=== PATIENT | female | born 2005 | race Caucasian/White ===

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

== ENCOUNTER 2025-02-23 07:40 | Outpatient (CLI) | payer BC, SELFPAY ==
--- OUTSIDE RECORDS SUMMARY | 2025-02-23 07:42 | XMS_ITS | Clinical Summary ---
Author Organization Healthcare Address [address] [id number] Care Team Providers Care Special Education Science Teacher Name Role Phone Rashad Lula Vance FRANKLIN Primary Care Provider [phone] Allergies No known active allergies Medications NON FORMULARY FD michelle per Fuchollis suggestions Active cyproheptadine (Periactin) 4 MG tablet Take 1 tablet (4 mg total) by mouth 2 (two) times a day. 60 tablet 3 12/19/19 22 Active ondansetron ODT (Zofran-ODT) 4 MG disintegrating tablet DISSOLVE ONE TABLET IN MOUTH EVERY 8 HOURS NEEDED FOR NAUSEA AND VOMITING 12/12/19 22 Active Active Problems Problem Noted Date Diagnosed Date Weight loss 12/21/2021 Generalized abdominal pain 12/21/2021 Non-intractable vomiting with nausea 12/21/2021 Heart palpitations 12/21/2021 Chronic nonintractable headache 12/21/2021 Other infants, unspecified (weight)(765. 10) 2005 Overview (12/29/2021): 36 weeks Immunizations Immunization Administration Dates Next Due DTaP / Hib 06/23/2007 DTaP, Unspecified 04/15/2010,12/06/2006,05/31/20 06,03/10/2006 Hep A, ped/adol, 2 dose 04/20/2018 Hep B, adult 06/23/2007,2005,2005 HiB, unspecified 12/06/2006,05/31/2006, 6 IPV 04/15/2010,06/23/2007,05/31/2006 ,03/10/2006 Influenza, Unspecified 06/23/2007 MMR 04/15/2010 MMRV 12/06/2006 Meningococcal MCV4P 04/20/2017 Pneumococcal Conjugate PCV 7 06/23/2007,12/07/19 07,05/31/2006,03/10/2006 Rotavirus Pentavalent 05/31/2006,03/10/2006 Tdap 04/20/2017 Varicella 04/15/2010 Family History Medical History Relation Name Comments Other Brother recent [facility] py Relation Name Status Comments Brother Social History Tobacco Use Types Packs/Day Years Used Date Smoking Tobacco: Never Smokeless Tobacco: Never Alcohol Use Standard Drinks/Week Comments Never 0 (1 standard drink = 0.6 oz pur e alcohol) PHQ-2 Answer Date Recorded Patient Health Questionnaire-2 Score 0 12/29/2021 Comments No Sex and Gender Information Value Date Recorded Sex Assigned at Not on file Legal Sex Female 12:15 PM EST Gender Identity Not on file Sexual Orientation Not on file Last Filed Vital Signs Vital Sign Reading Time Taken Comments Blood Pressure 122/76 09/19/2023 8:33 PM EST Pulse 94 09/19/2023 8:33 PM EST Temperature 36.4 C (97.6 F) 09/19/2023 8:33 PM EST Respiratory Rate 18 09/19/2023 8:33 PM EST Oxygen Saturation 97% 09/19/2023 8:33 PM EST Inhaled Oxygen Concentration - - Weight 64.2 kg (141 lb 8.6 oz) 09/19/2023 8:32 P M EST Height 175.9 cm (5' 9.25 ) 12/29/2021 1:05 PM ED T Body Mass Index - - Plan of Treatment Health Maintenance Due Date Last Done Comments [facility]-HIV Screening 2005 [facility]-Hepatitis C Screening 2005 [facility]-Infant/Child/Adol SDOH Screenings 2005 Fluoride Varnish 07/09/2006 [id number] Vaccine (#1) 2010 [facility]-Hepatitis A Vaccines (2 of 2 - 2-dose series) 10/21/2018 04/20/2018 HPV Vaccines (1 - 3-dose series) 2020 [facility]-Depression Screening 12/29/2022 12/29/2021 [facility]- SDOH Screenings 2023 [facility]-Adult SDOH Screenings 2023 [facility]-Influenza Vaccine (Season Ended) 2025 06/23/2007 [facility]-DTaP,Tdap,and Td Vaccines (7 - Td or Tdap) 04/20/2027 04/20/2017, 04/15/2010, 06/23/2007, Additional history exists [facility]-Zoster Vaccines (1 of 2) 2055 04/15/2010, 12/06/2006 [facility]-Rotavirus Vaccines Aged Out 05/31/2006, 2005 No longer eligible based on patient's age to complete this topic [facility]-HIB Vaccines Completed 06/23/2007, , 05/31/2006, Additional history exists [facility]-Hepatitis B Vaccines Completed 007, 2005, 2005 [facility]-Pneumococcal Vaccine: Pediatrics (0 to 5 Years) and At-Risk Patients (6 to 49 Years) Aged Out 06/23/2007, 12/06/2006, 05/31/2006, Additional history exists No longer eligible based on patient's age to complete this topic [facility]-IPV Vaccines Completed 04/15/2010, 07/2007, 05/31/2006, Additional history exists [facility]-Varicella Vaccines Completed 04/15/2010, 2006 Insurance [facility] TIA KAM, [place] [id number] [facility] Care Teams Special Education Science Teacher Relationship Specialty Start Date End Date Lula Solorzano PA [address] [place] [address] [facility] - General 12/18/21
[2025-02-23 07:59] LABS: Basophils % 0.5 % (0.1-2.0); Eosinophils # 0.2 Kmm3 (0.0-0.4); Eosinophils % 2.7 % (0.1-12.0); Hematocrit 41.4 % (37.0-47.0); Hemoglobin 13.1 g/dL (12.2-16.2); Immature Granulocytes # 0.01 10^3uL; Immature Granulocytes % 0.2 %; Lymphocytes # 2.2 K/mm3 (0.7-4.5); Lymphocytes % 36.8 % (10-50); Mean Corpuscular HGB Conc 31.6 g/dL (31.8-35.4); Mean Corpuscular Hemoglobin 26.7 pg (27.0-31.2); Mean Corpuscular Volume 84.5 fl (81-99); Monocytes # 0.8 K/mm3 (0.1-1.0); Neutrophils # 2.8 K/mm3 (1.8-7.8); Neutrophils % 46.8 % (37.0-80.0); Nucleated Red Blood Cells # 0 10^3/uL; Nucleated Red Blood Cells % 0 %; Platelet Count 236 K/mm3 (142-424); Red Cell Distribution Width 16.4 % (11.5-17.5); Red Cell Distribution Width-SD 50.9 fL
[2025-02-23 08:31] LABS: Iron 75 ug/dL (37-170)
[2025-02-23 08:42] LABS: Total Iron Binding Capacity 361 ug/dL (265-497)
[2025-02-23 09:04] LABS: Ferritin 7.51 ng/ml (6.24-137)
[2025-02-28 16:13] LABS: Saccharomyces cerevisiae, IgA <20.0 Units (0.0-24.9); Saccharomyces cerevisiae, IgG 20.4 Units (0.0-24.9)
== END 2025-02-23 23:59 | disposition home or self-care (01) ==
LOC: LAB 07:41
PROVIDERS: PCP Nurse Practitioner Family; Visit Provider Nurse Practitioner Family
DX: E61.1 Iron deficiency (principal)
CPT/HCPCS: 36415; 82728; 83540; 83550; 85025; 86256; 86671

== ENCOUNTER 2025-03-30 15:14 | Outpatient (CLI) | payer BC, SELFPAY ==
--- OUTSIDE RECORDS SUMMARY | 2025-03-30 15:16 | XMS_ITS | Clinical Summary ---
Author Organization Healthcare Address [address] [id number] Care Team Providers Care Steel Inspector Name Role Phone Rashad Lula Vance FRANKLIN Primary Care Provider [phone] Allergies No known active allergies Medications NON [...] [facility]-Infant/Child/Adol SDOH Screenings 2005 Fluoride Varnish 07/09/2006 [id number] Vaccine (#1) 2010 [facility]-Hepatitis A Vaccines (2 of 2 - 2-dose series) 10/21/2018 04/20/2018 HPV Vaccines (1 - 3-dose series) 2020 [facility]-Depression Screening 12/29/2022 12/29/2021 UKY- SDOH Screenings 2023 [facility]Y-Adult SDOH Screenings 2023 [facility]Y-Influenza Vaccine (#1) 2025 06/23/2007 UKY-DTaP,Tdap,and Td Vaccines (7 - [...] exists [facility]Y-Varicella Vaccines Completed 04/15/2010, 2006 Insurance [facility] TIA KAM, NEAL [phone] [facility] Care Teams Steel Inspector Relationship Specialty Start Date End Date Lula Solorzano PA [address] [place] [address] [facility] - General 12/18/21
--- OUTSIDE RECORDS SUMMARY | 2025-03-30 15:16 | XMS_ITS | Encounter Summary ---
Author Organization [facility] Address [address] [place] [address] Care Team Providers Care Superintendent Stevedoring Name Role Phone Kay Borrero M.D. Primary Care P [facility] Encounter Details Date Type Department Care Team (Late st Contact Info) Description 04/14/2012 Abstract [facility] Division of Cardiology [address] [place] [phone] Claudia Napoles, R.N. Social History Tobacco Use Types Packs/Day Years Used Date Smoking Tobacco: Never Assessed Comments Unknown Sex and Gender Information Value Date Recorded Sex Assigned at Not on file Legal Sex Female 5:36 AM EST Gender Identity Not on file Sexual Orientation Not on file documented as of this encounter Plan of Treatment Not on file documented as of this encounter Visit Diagnoses Not on filedocumented in this encounter Care Teams Superintendent Stevedoring Relationship Specialty Start Date End Date Kay Borrero M.D. [facility] [address] [place] [address] PCP - General EMERGENCY MEDICINE [facility] 05/27/11 documented as of this encounter
--- OUTSIDE RECORDS SUMMARY | 2025-03-30 15:16 | XMS_ITS | Clinical Summary ---
Author Organization [facility] Address [address] [place] [address] Care Team Providers Care Senior Research Associate Name Role Phone Kay Borrero M.D. Primary Care [facility] Source Comments [facility] is fully rolled out with thefollowing exceptions:General Clinical Research [facility] Allergies No known active allergies Medications No known medications Social History Tobacco Use Types Packs/Day Years Used Date Smoking Tobacco: Never Assessed Comments Unknown Sex and Gender Information Value Date Recorded Sex Assigned at Not on file Legal Sex Female 5:36 AM EST Gender Identity Not on file Sexual Orientation Not on file Last Filed Vital Signs Vital Sign Reading Time Taken Comments Blood Pressure 105/63 04/28/2012 10:19 AM EDT Pulse 70 04/28/2012 10:18 AM EDT Temperature 37 C (98.6 F) 04/12/2012 6:47 PM EDT Respiratory Rate 20 04/28/2012 10:18 AM EDT Oxygen Saturation 98% 04/28/2012 10:18 AM EDT Inhaled Oxygen Concentration - - Weight 25.9 kg (57 lb) 04/28/2012 10:18 AM EDT Height 121.5 cm (3' 11.84 ) 04/28/2012 10:18 AM EDT Body Mass Index 17.51 04/28/2012 10:18 AM EDT Body Mass Index Percentile 86.84% 04/28/2012 10: 18 AM EDT Growth Chart: [facility] (Girls, 2- 20 Years) Plan of Treatment Health Maintenance Due Date Last Done Comments MMR IMMUNIZATION (1 of 1 - S tandard series) 2006 DTAP/Tdap/Td IMMUNIZATION (1 - Tdap) 2012 VARICELLA IMMUNIZATION (1 of 2 - 13+ 2-dose series) 2018 HPV IMMUNIZATION (1 - 3-dose series) 2020 MENINGOCOCCAL B VACCINE (1 o f 2 - Standard) 2021 COVID-19 Vaccine (1 - 2023-2 5 season) 2024 HEPATITIS B IMMUNIZATION (1 of 3 - 19+ 3-dose series) 2024 AMB SEASONAL FLU VACCINE (#1) 05/14/2025 HIB IMMUNIZATION Aged Out No longer e ligible based on patient's age to complete this topic IPV IMMUNIZATION Aged Out No longer e ligible based on patient's age to complete this topic MCV4 IMMUNIZATION Aged Out No longer eligible based on patient's age to complete this topic PNEUMOCOCCAL IMMUNIZATION Aged Out No longer eligible based on patient's age to complete this topic Respiratory Syncytial Virus (RSV) <20mo Aged Out No longer eligible b ased on patient's age to complete this topic Insurance [employer] Care Teams Senior Research Associate Relationship Specialty Start Date End Date Kay Borrero M.D. [facility] [address] [place] [address] PCP - General EMERGENCY MEDICINE [facility] 05/27/11
--- NOTE | 2025-03-30 15:30 | US_ITS ---
FINAL REPORT CLINICAL HISTORY: lump of RT axilla FINDINGS: Limited sonographic images of the right axilla were obtained. There is adenopathy in the deep axilla. The largest node is 2.6 x 2.2 x 1.2 cm. A few other smaller lymph nodes are identified. No fluid collection identified. IMPRESSION: Mild right axillary adenopathy. Recommend 2-month ultrasound follow-up. Reviewed, Interpreted and Dictated by Diamond Krishnamurthy MD Transcribed by Katrina Smiley Authenticated and [facility]
== END 2025-03-30 23:59 | disposition home or self-care (01) ==
LOC: RAD 15:15
PROVIDERS: PCP Nurse Practitioner Family; Visit Provider Obstetrics & Gynecology
DX: N63.31 Unspecified lump in axillary tail of the right breast (principal)
CPT/HCPCS: 76642

== ENCOUNTER 2025-04-03 12:02 | Outpatient (CLI) | payer BC, SELFPAY ==
--- OUTSIDE RECORDS SUMMARY | 2025-04-03 12:04 | XMS_ITS | Clinical Summary ---
Author Organization Healthcare Address [address] [id number] Care Team Providers Care Avid Editor Name Role Phone Rashad Lula Vance FRANKLIN Primary Care Provider [phone] Allergies No known active allergies Medications NON [...] [facility]-Infant/Child/Adol SDOH Screenings 2005 Fluoride Varnish 07/09/2006 [id number] Vaccine (#1) 2010 [facility]-Hepatitis A Vaccines (2 [...] exists [facility]Y-Varicella Vaccines Completed 04/15/2010, 2006 Insurance [facility] TIA KAM, NEAL [address] [facility] Care Teams Avid Editor Relationship Specialty Start Date End Date Lula Solorzano PA [address] [place] [address] [facility] - General 12/18/21
--- OUTSIDE RECORDS SUMMARY | 2025-04-03 12:04 | XMS_ITS | Clinical Summary ---
Author Organization [facility] Address [address] [place] [address] Care Team Providers Care Budget Coordinator Name Role Phone Kay Borrero M.D. Primary Care [facility] Source Comments [facility] is fully rolled out with thefollowing exceptions:General Clinical Research [facility] Allergies No known active allergies Medications [...] 04/28/2012 10: 18 AM EDT Growth Chart: [facility] (Girls, 2- 20 Years) Plan of Treatment [...] this topic Insurance [employer]ARA TOWNSEND Care Teams Budget Coordinator Relationship Specialty Start Date End Date Kay Borrero M.D. [facility] [address] [place] [address] PCP - General EMERGENCY MEDICINE [facility] 05/27/11
--- OUTSIDE RECORDS SUMMARY | 2025-04-03 12:04 | XMS_ITS | Encounter Summary ---
Author Organization [facility] Address [address] [place] [address] Care Team Providers Care Program Architect Name Role Phone Kay Borrero M.D. Primary Care [facility] Encounter Details Date Type Department Care Team (Late st Contact Info) Description 04/14/2012 Abstract [facility] Division of Cardiology [address] [place] [phone] Claudia Napoles, R.N. Social History Tobacco [...] on filedocumented in this encounter Care Teams Program Architect Relationship Specialty Start Date End Date Kay Borrero M.D. [facility] [address] [facility] [place] [address] PCP - General EMERGENCY MEDICINE [facility] 05/27/11 documented as of this encounter
[2025-04-03 12:45] LABS: Hematocrit 41.3 % (37.0-47.0); Hemoglobin 13.1 g/dL (12.2-16.2); Immature Granulocytes % 0.2 %; Mean Corpuscular HGB Conc 31.7 g/dL (31.8-35.4); Mean Corpuscular Hemoglobin 27.2 pg (27.0-31.2); Mean Corpuscular Volume 85.9 fl (81-99); Nucleated Red Blood Cells % 0 %; Platelet Count 241 K/mm3 (142-424); Red Blood Count 4.81 M/mm3 (4.20-5.40); Red Cell Distribution Width-SD 42.7 fL; White Blood Count 5.9 K/mm3 (4.5-13.0)
[2025-04-03 13:08] LABS: Iron 76 ug/dL (37-170)
[2025-04-03 13:18] LABS: Total Iron Binding Capacity 345 ug/dL (265-497)
[2025-04-03 13:43] LABS: Ferritin 15.3 ng/ml (6.24-137)
== END 2025-04-03 23:59 | disposition home or self-care (01) ==
LOC: LAB 12:03
PROVIDERS: PCP Nurse Practitioner Family; Visit Provider Nurse Practitioner Family
DX: E61.1 Iron deficiency (principal)
CPT/HCPCS: 36415; 82728; 83540; 83550; 85025

== ENCOUNTER 2025-05-23 14:34 | Outpatient (CLI) | payer BC, SELFPAY ==
--- OUTSIDE RECORDS SUMMARY | 2025-05-23 14:36 | XMS_ITS | Clinical Summary ---
Author Organization Healthcare Address [address] [id number] Care Team Providers Care Distribution Clerk Name Role Phone Rashad Lula Vance FRANKLIN Primary Care Provider [phone] Allergies No known active allergies Medications NON [...] [facility]-HIV Screening 2005 [facility]-Hepatitis C Screening 2005 [facility]-/Child/Adol SDOH Screenings 2005 Fluoride Varnish 07/09/2006 [id number] Vaccine (#1) 2010 [facility]Y-Hepatitis A Vaccines (2 [...] exists [facility]Y-Varicella Vaccines Completed 04/15/2010, 2006 Insurance [facility] TIA KAM, NEAL [address] [facility] Care Teams Distribution Clerk Relationship Specialty Start Date End Date Lula Solorzano PA [address] [place] [address] [facility] - General 12/18/21
--- OUTSIDE RECORDS SUMMARY | 2025-05-23 14:36 | XMS_ITS | Encounter Summary ---
Author Organization [facility] Address [address] [place] [address] Care Team Providers Care Gill Tender Name Role Phone Kay Borrero M.D. Primary Care [facility] Encounter Details Date Type Department Care Team (Late st Contact Info) Description 04/14/2012 Abstract [facility] Division of Cardiology [address] [place] [phone] Claudia Napoles, R.N. Social History Tobacco [...] on filedocumented in this encounter Care Teams Gill Tender Relationship Specialty Start Date End Date Kay Borrero M.D. [address] [place] [address] PCP - General EMERGENCY MEDICINE [facility] 05/27/11 documented as of this encounter
--- OUTSIDE RECORDS SUMMARY | 2025-05-23 14:36 | XMS_ITS | Clinical Summary ---
Author Organization [facility] Address [address] [place] [address] Care Team Providers Care Qualifications Examiner Name Role Phone Kay Borrreo M.D. Primary Care [facility] Source Comments [facility] is fully rolled out with thefollowing exceptions:General Clinical Research [facility] Allergies No known active allergies Medications No [...] 04/28/2012 10: 18 AM EDT Growth Chart: [facility] (Girls, 2- 20 Years) Plan of Treatment Health Maintenance Due Date Last Done Comments MMR IMMUNIZATION (1 of 1 - S tandard series) 2006 DTAP/Tdap/Td IMMUNIZATION (1 - Tdap) 2012 VARICELLA IMMUNIZATION (1 of 2 - 13+ 2-dose series) 2018 HPV IMMUNIZATION (1 - 3-dose series) 2020 MENINGOCOCCAL B VACCINE (1 o f 2 - Standard) 2021 HEPATITIS B IMMUNIZATION (1 of 3 - 19+ 3-dose series) 2024 AMB SEASONAL FLU VACCINE (#1) 05/14/2025 COVID-19 Vaccine (1 - 2023-2 5 season) 2025 HIB IMMUNIZATION Aged Out No longer e [...] this topic Insurance [employer]OWNS[employer] Care Teams Qualifications Examiner Relationship Specialty Start Date End Date Kay Borrero M.D. [address] [place] [address] PCP - General EMERGENCY MEDICINE [facility] 05/27/11
--- NOTE | 2025-05-23 14:45 | MR_ITS ---
FINAL REPORT TECHNIQUE: Multiplanar and multisequence imaging of the brain was obtained before and after contrast administration. CLINICAL HISTORY: chronic headaches, dizziness, fm hx brain tumor symptoms worsening over the past 5 months COMPARISON: None FINDINGS: Brain parenchymal: There is no mass effect or midline shift. There are no areas of abnormal signal intensity.The cerebellum and brainstem are without acute abnormality. Ventricles: The ventricles are symmetric in size and configuration without hydrocephalus. Extra-axial spaces: No extra-axial fluid collections. Diffusion imaging: No areas of restricted diffusion to suggest acute infarct. Flow voids: Flow voids within the major intracranial vessels are preserved. Soft tissues: Soft tissues are without acute abnormality. There is mucoperiosteal thickening in the bilateral maxillary, ethmoid, and left frontal air cells. Post contrast imaging: No abnormal enhancement. IMPRESSION: No acute intracranial abnormality and no pathologic contrast enhancement. Reviewed, Interpreted and Dictated by Winter Cote MD Transcribed by Diana Suggs Authenticated and [facility]
[2025-05-23] MEDS: SODIUM CHLORIDE 0.9% 10ML SYR (RAD ONLY) 10 ML IV (15:43)
[2025-05-23] MEDS: GADOTERIDOL INJ 20ML SYRINGE 14 ML IV (15:43)
== END 2025-05-23 23:59 | disposition home or self-care (01) ==
LOC: RAD 14:34
PROVIDERS: PCP Nurse Practitioner Family; Visit Provider Nurse Practitioner Family
DX: G43.909 Migraine, unspecified, not intractable, without status migrainosus (principal); Z84.89 Family history of other specified conditions
CPT/HCPCS: 70553; A9576

== ENCOUNTER 2025-06-02 22:51 | Emergency (ER) | payer BC, SELFPAY ==
--- OUTSIDE RECORDS SUMMARY | 2025-06-02 22:57 | XMS_ITS | Encounter Summary ---
Author Organization [facility] Address [address] [place] [address] Care Team Providers Care Audiovisual Technician Name Role Phone Kay Borrero M.D. Primary Care [facility] Encounter Details Date Type Department Care Team (Late st Contact Info) Description 04/14/2012 Abstract [facility] Division of Cardiology [address] [place] [phone] Claudia Napoles, R.N. Social History Tobacco [...] on filedocumented in this encounter Care Teams Audiovisual Technician Relationship Specialty Start Date End Date Kay Borrero M.D. [address] [place] [address] PCP - General EMERGENCY MEDICINE [facility] 05/27/11 documented as of this encounter
--- OUTSIDE RECORDS SUMMARY | 2025-06-02 22:57 | XMS_ITS | Clinical Summary ---
Author Organization Healthcare Address [address] [id number] Care Team Providers Care Diamond Blender Name Role Phone Rashad Lula Vance FRANKLIN Primary Care Provider [phone] Allergies No known active allergies Medications NON [...] [facility]-/Child/Adol SDOH Screenings 2005 Fluoride Varnish 07/09/2006 [id number] Vaccine (#1) 2010 [facility]Y-Hepatitis A Vaccines (2 [...] exists [facility]Y-Varicella Vaccines Completed 04/15/2010, 2006 Insurance [facility] TIA KAM, NEAL [phone] [facility] Care Teams Diamond Blender Relationship Specialty Start Date End Date Lula Solorzano PA [address] [place] [address] [facility] - General 12/18/21
--- OUTSIDE RECORDS SUMMARY | 2025-06-02 22:58 | XMS_ITS | Clinical Summary ---
Author Organization [facility] Address [address] [place] [address] Care Team Providers Care Vp Public Relations Name Role Phone Kay Borrero M.D. Primary Care [facility] Source Comments [facility] is fully rolled out with thefollowing exceptions:General Clinical Research [facility] Allergies No known active allergies Medications No [...] 04/28/2012 10: 18 AM EDT Growth Chart: [facility] (Girls, 2- 20 Years) Plan of Treatment [...] this topic Insurance TARA TOWNSEND Care Teams Vp Public Relations Relationship Specialty Start Date End Date Kay Borrero M.D. [address] [place] [address] PCP - General EMERGENCY MEDICINE [facility] FAC[facility] 05/27/11
[2025-06-02 23:00] VITALS: BP 121/80; PULSE 92; RESP 22; TEMP 36.9; O2SAT 100; BMI 22.1
[2025-06-02 23:02] VITALS: PULSE 85; O2SAT 100
--- NOTE | 2025-06-02 23:05 | CT_ITS ---
PROCEDURE INFORMATION: Exam: CT Abdomen And Pelvis With Contrast Exam date and time: 06/03/2025 12:21 AM Age: 19 years old Clinical indication: Nausea and vomiting; Abdominal pain; Additional info: Rlq pain radiating to back w/ n/v TECHNIQUE: Imaging protocol: Computed tomography of the abdomen and pelvis with contrast. Radiation optimization: All CT scans at this facility use at least one of these dose optimization techniques: automated exposure control; mA and/or kV adjustment per patient size (includes targeted exams where dose is matched to clinical indication); or iterative reconstruction. Contrast material: ISOVUE; Contrast volume: 75 ml; Contrast route: IV; COMPARISON: CR XR KUB 01/11/2023 1:46 PM FINDINGS: Lungs: The visualized lung bases are clear. Pleural spaces: There are no pleural effusions. Heart: The visualized portions of the heart are unremarkable. Liver: The liver is normal. Gallbladder and biliary ducts: The gallbladder is normal. Pancreas: The pancreas is normal. Spleen: The spleen is normal. Adrenal glands: The adrenal glands are normal. Kidneys and ureters: The kidneys are normal. Stomach and bowel: The stomach is normal. The duodenum is unremarkable. Lack of gastrointestinal contrast limits evaluation of bowel. The colon is normal. The unopacified loops of small bowel are within range of normal. Appendix: No evidence of appendicitis. An abnormal appendix is not seen. No inflammatory changes are seen within the right lower quadrant. Intraperitoneal space: There is no evidence of free intraperitoneal or pelvic fluid. No free air. Vasculature: There are a few benign phleboliths in the pelvis. No aneurysm. Lymph nodes: There are a few small lymph nodes in the right mid and lower abdomen, not of pathologic significance by size criteria. Urinary bladder: The bladder is incompletely decompressed. Reproductive: The uterus is normal. The ovaries are normal. Bones/joints: There is no evidence of acute fracture. Soft tissues: No significant soft tissue edema. IMPRESSION: No acute intra-abdominal abnormality.
[2025-06-02 23:18] LABS: Microscopic, Urine URINE MICROSCOPIC (MICROSCOPIC)
[2025-06-02 23:19] LABS: Hematocrit 41.9 % (37.0-47.0); Hemoglobin 13.8 g/dL (12.2-16.2); Immature Granulocytes % 0.2 %; Mean Corpuscular HGB Conc 32.9 g/dL (31.8-35.4); Mean Corpuscular Hemoglobin 27.9 pg (27.0-31.2); Mean Corpuscular Volume 84.8 fl (81-99); Nucleated Red Blood Cells % 0 %; Platelet Count 309 K/mm3 (142-424); Red Blood Count 4.94 M/mm3 (4.20-5.40); Red Cell Distribution Width-SD 42.2 fL; White Blood Count 10.2 K/mm3 (4.5-13.0)
[2025-06-02 23:23] LABS: Bilirubin,Urine Negative (Negative); Color,Urine YELLOW (Yellow); Glucose,Urine (UA) Negative (Negative); Ketones,Urine Negative (Negative); Leukocyte Esterase,Urine Negative (Negative); PH,Urine 6.0 (5.0-8.5); Protein,Urine Negative (Negative); Specific Gravity, Urine 1.025 (1.005-1.030); Urobilinogen,Urine 0.2 EU/dl (0.2)
[2025-06-02 23:27] LABS: Albumin Level 4.8 g/dl (3.5-5.0); Chloride 100 mmol/L (98-107); Sodium 138 mmol/L (136-145)
[2025-06-02 23:28] LABS: Potassium 3.6 mmoL/L (3.5-5.1)
[2025-06-02 23:30] VITALS: BP 129/109; PULSE 84; O2SAT 99
[2025-06-02 23:30] LABS: Alanine Aminotransferase 19 U/L (12-78); Anion Gap 15.6 mEq/L (5-15); Aspartate Amino Transferase 27 U/L (14-36); Blood Urea Nitrogen 16 mg/dl (7-17); Carbon Dioxide 26 mmol/L (22.0-30.0); Creatinine Clearance Estimated 121 mL/min (50-200); Creatinine,Serum 0.80 mg/dl (0.52-1.04); Estimated Glomerular Filt Rate 92 ml/min (>60); GFR (African American) 112 ML/MIN (>60)
[2025-06-02 23:31] LABS: Albumin/Globulin Ratio 1.5 (1.1-1.8); Alkaline Phosphatase 71 U/L (38-126); Bilirubin,Total 0.5 mg/dl (0.2-1.3); Calcium 9.9 mg/dl (8.4-10.2); Globulin 3.2 g/dL (1.3-3.2); Glucose 97 mg/dl (74-100); INR 1.00 (0.9-1.1); Lipase 192 U/L (23-300); Prothrombin Time 11.1 seconds (10.1-12.5); Total Protein,Serum 8.0 g/dl (6.3-8.2)
--- NOTE | 2025-06-02 23:31 | HMH.EDGENADL ---
Discharge Plan Disposition Patient Disposition: Home, Self-Care Condition: Good Prescriptions Prescriptions: New ondansetron 4 mg tablet,disintegrating 4 mg PO Q6H PRN (Reason: nausea and vomiting) Qty: 10 0RF No Action atogepant [Qulipta] 60 mg tablet 0RF Qulipta 60 mg tablet 60 mg PO DAILY Qty: 90 3RF polyethylene glycol 3350 [Miralax] 17 gram/dose powder 17 g PO DAILY Fiber Gummies 1.7 gram tablet,chewable 1.7 g PO DAILY sodium,potassium,mag sulfates [Suprep Bowel Prep Kit] 17.5-3.13-1.6 gram recon soln See Rx Instructions PO .COMPLEX Qty: 354 0RF Rx Instructions: DILUTE; drink full amount early evening before AND next morning at least 4-5 hr before procedure; follow w 960 mL water PO Referrals Follow up/Referrals: Nancy Joseph APRN [Primary Care Provider, Family Practice] - See instructions Activity Restrictions/Add. Instructions Additional Instructions/Restrictions: You were evaluated in the ER and are believed to be appropriate for discharge at this time. Take the prescribed Zofran (ondansetron) if needed for nausea or vomiting. Drink plenty of water, Gatorade, Pedialyte to stay hydrated. Make an appointment with your primary care doctor for reevaluation in a few days. Return to the ER with any new, worsening, or otherwise concerning symptoms. Clinical Impressions Clinical Impression: Right sided abdominal pain Instructions Patient Instructions: DI for Acute Abdominal Pain Print Language Print Language: Bhutanese Discharge ED Provider: John Beckman General Adult HPI General Chief complaint: Abdominal Pain Stated complaint: abdominal pain Time Seen by Provider: 06/02/25 23:05 Mode of Arrival: Ambulatory Source of Information: Patient and Parent(s) Description of Symptoms (Recalled from ER Triage Doc. by RN): pt reports lower right sided abdomen pain and radiates into the back, pt reports it has been an uncomfortable feeling on and off all week but tonight at 8pm it became painful History of Present Illness HPI narrative: 19-year-old female presents to the ER with right lower quadrant abdominal pain radiating to the back. Patient reports she has had some discomfort in the right lower quadrant all week but today it started radiating to the right lower back and tonight approximately 3 hours prior to arrival it became exquisitely more painful. She had 1 episode of emesis prior to arrival. Nonbloody, nonbilious. She states she typically has 2-3 bowel movements per week and most recently had 1 today that was normal consistency, nonbloody, nonmelanotic. Patient denies any fevers or chills, no chest pain or difficulty breathing, no dysuria or hematuria. Most recent menstrual period was 1 week ago. Patient reports no history of abdominal surgeries, no right upper quadrant abdominal pain, she states the pain in her back radiates directly through from the right lower quadrant. No medications prior to arrival. No other complaints or concerns at this time. Related Data Home Medications ?Medication ?Instructions ?Recorded ?Confirmed inulin 1.7 gram chewable tablet 1.7 g PO DAILY 04/03/25 05/07/25 (Fiber Gummies) polyethylene glycol 3350 17 17 g PO DAILY 04/03/25 05/07/25 gram/dose oral powder (Miralax) Previous Rx's ?Medication ?Instructions ?Recorded atogepant 60 mg tablet (Qulipta) 60 mg PO DAILY #90 tabs 05/14/25 sodium,potassium,mag sulfates 17.5 See Rx Instructions PO .COMPLEX 06/01/25 gram-3.13 gram-1.6 gram oral soln #354 mL (Suprep Bowel Prep Kit) ondansetron 4 mg disintegrating 4 mg PO Q6H PRN nausea and 06/03/25 tablet vomiting #10 tabs Allergies Allergy/AdvReac Type Severity Reaction Status Date / Time No Known Allergies Allergy Verified 05/07/25 11:52 [facility] Disclaimer: The information contained in this section may have been updated after the patient was seen, as this information can be updated by other users. Medical History (Updated 06/03/25 @ 01:46 by John Beckman MD) Encounter to establish care Hematochezia Bright red blood per rectum Contact dermatitis and eczema due to plant Unspecified lump in axillary tail of the right breast Cyclic vomiting syndrome Sinusitis UTI (urinary tract infection) Pharyngitis Pharyngitis due to Streptococcus species Sore throat Post-tonsillectomy hemorrhage Post-tonsillectomy hemorrhage Myofascial pain Neck pain Dysmenorrhea Enlarged tonsils Laceration Left ankle injury Left ankle instability Leg pain Difficulty walking Complex regional pain syndrome i of left lower limb CRPS (complex regional pain syndrome) type I of lower limb Tear of peroneal tendon of left foot Edema of left ankle High ankle sprain of left lower extremity Strain of left peroneal muscle or tendon Left ankle pain Need for rabies vaccination Acne Depression Major depressive disorder Generalized anxiety disorder Insomnia Anxiety and depression Surgical History Status post tonsillectomy Family History Other No significant family history Social History (Updated 05/07/25 @ 11:53 by Ryann Vincent CMA) Smoking Status: Never smoker second hand exposure: No alcohol intake: never substance use type: denies use counseling given: No current occupational status: unemployed and student Travel in the last 8 weeks?: Inside the [place] household members: family housing: house pets and animals: Yes pets and animals: cat(s) and dog(s) caffeine: Yes physical activity: other details: 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; 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 frequency: 3-4 times per week duration: 60-90 minutes/day working smoke detector in home: Yes fire extinguisher in home: No carbon monox detector in home: No firearms in home: No Have you lived/traveled outside US in past 30 days?: No Contact w/someone who lives/traveled outside US past 30 days?: No Exposure to someone with infectious disease in past 14 days?: No Do you have a fever (greater than 100.4 F or 38 C)?: No Have you tested positive for COVID-19?: No Exposed to someone with COVID-19 in past 14 days?: No Do you have a sore throat?: No Do you have a cough?: No Do you have any weakness?: No Do you have any diarrhea?: No Are you experiencing any unusual bleeding?: No Do you have any muscle aches/pain?: No Do you have any abdominal pain?: Yes Are you experiencing loss of taste or smell?: No Other Medical History Have you received the Flu Vaccine for this season: No Have you received the Pneumonia Vaccine: No ROS Obtained: Yes Systems reviewed as appropriate & no additional complaints except as documented Per HPI Physical Exam General General appearance: alert and in no apparent distress Head Head exam: atraumatic and normocephalic Eye Eye exam: Present PERRL and EOMI ENT ENT exam: Present mucous membranes moist Neck Neck exam: Present normal inspection and full ROM Chest Chest inspection: Present symmetric chest wall rise Respiratory Respiratory exam: Present normal lung sounds bilaterally; Absent respiratory distress, wheezes or stridor Cardiovascular Cardiovascular exam: Present regular rate and normal rhythm Abdominal Exam Abdominal exam: Present soft and tenderness (Right lower quadrant, mild); Absent distention, guarding, rebound or rigidity Extremities Exam Extremities exam: Present full ROM Back Exam Back exam: Absent CVA tenderness (R) or CVA tenderness (L) Neurological Exam Neurological exam: Present alert and oriented X3; Absent motor sensory deficit Psychiatric Psychiatric exam: Present normal affect and normal mood Skin Skin exam: Present warm and dry Medical Decision Making Medical Records Medical records reviewed: Yes I reviewed the patient's medical records. Screening: Per USPSTF and CDC recommendations, given the prevalence of disease in our region, it is our hospital?s policy to screen for HIV and viral Hepatitis for all patients aged 18 and over and those with ongoing risk factors. Roland Inquiry Pt receiving controlled substance: No Vital Signs: 06/02/25 23:00 06/02/25 23:02 06/02/25 23:30 Temperature 98.4 F Temperature Source Oral Pulse Rate 85 84 Pulse Rate [Right] 92 H Respiratory Rate 22 Blood Pressure 129/109 H Blood Pressure [Right Arm] 121/80 Blood Pressure Mean [Right Arm] 93 02 Sat by Pulse Oximetry 100 100 99 Oxygen Delivery Method Room Air 06/02/25 23:57 06/03/25 00:00 06/03/25 00:30 Temperature Temperature Source Pulse Rate 80 78 72 Pulse Rate [Right] Respiratory Rate Blood Pressure 115/69 110/58 L 115/70 Blood Pressure [Right Arm] Blood Pressure Mean [Right Arm] 02 Sat by Pulse Oximetry 98 97 98 Oxygen Delivery Method 06/03/25 01:01 Temperature Temperature Source Pulse Rate 64 Pulse Rate [Right] Respiratory Rate Blood Pressure 112/59 L Blood Pressure [Right Arm] Blood Pressure Mean [Right Arm] 02 Sat by Pulse Oximetry 99 Oxygen Delivery Method Lab Data Lab Results 06/02/25 22:57: Urine Color Yellow, Urine Appearance Clear, Urine pH 6.0, Ur Specific [place] 1.025, Urine Protein Negative, Urine Glucose (UA) Negative, Urine Ketones Negative, Urine Blood Negative, Urine Nitrate Negative, Urine Bilirubin Negative, Urine Urobilinogen 0.2, Ur Leukocyte Esterase Negative, Urine RBC None, Urine WBC None, Ur Squamous Epith Cells 20-50, Urine Bacteria 1+ 06/02/25 23:05: WBC 10.2, RBC 4.94, Hgb 13.8, Hct 41.9, MCV 84.8, MCH 27.9, MCHC 32.9, RDW 13.6, Plt Count 309, MPV 9.8, Neut % (Auto) 51.2, Lymph % (Auto) 36.6, [place] % (Auto) 10.1 H, Eos % (Auto) 1.5, Baso % (Auto) 0.4, Neut # (Auto) 5.2, Lymph # (Auto) 3.7, [place] # (Auto) 1.0, Eos # (Auto) 0.2, Baso # (Auto) 0.0, PT 11.1, INR 1.00, Sodium 138, Potassium 3.6, Chloride 100, Carbon Dioxide 26, Anion Gap 15.6 H, BUN 16, Creatinine 0.80, Estimated Creat Clear 121, Estimated GFR 92, Est GFR ( Amer) 112, Glucose 97, Lactate 0.8, Calcium 9.9, Total Bilirubin 0.5, AST 27, ALT 19, Alkaline Phosphatase 71, Total Protein 8.0, Albumin 4.8, Globulin 3.2, Albumin/Globulin Ratio 1.5, Lipase 192, Serum HCG, Qual Negative 06/02/25 23:05 06/02/25 23:05 Orders (Tests/Meds): ED MEDICATIONS Generic Name Dose Route Start Last Admin Trade Name Freq PRN Reason Stop Dose Admin Sodium Chloride 10 ml 06/03/25 00:27 06/03/25 00:28 Sodium Chloride 0.9% 10ml Syr (Rad Only) IV 07/03/25 00:26 10 ml NEEDED PRN Administration Maintain IV Site Discontinued Medications Generic Name Dose Route Start Last Admin Trade Name Freq PRN Reason Stop Dose Admin Lactated Ringer's 1,000 mls @ 999 mls/hr 06/02/25 23:05 06/03/25 00:59 Lactated Ringer's 1000 Ml Bag IV 06/03/25 00:05 Infused .Q1H1M ONE Infusion Iopamidol 75 ml 06/03/25 00:27 06/03/25 00:28 Iopamidol-370 (76%);100ml Bottle IV 06/03/25 00:28 75 ml ONCE ONE Administration Ketorolac Tromethamine 30 mg 06/02/25 23:15 06/02/25 23:34 Ketorolac 30mg/Ml Vial IV 06/02/25 23:16 30 mg ONCE ONE Administration Ondansetron HCl 4 mg 06/02/25 23:05 06/02/25 23:34 Ondansetron 4mg/2ml Vial IV 06/02/25 23:06 4 mg ONCE ONE Administration ORDERS Category Date Time Status CT abdomen pelvis w con Stat Cat Scan 06/02/25 23:05 Completed Complete Blood Count Auto Diff Stat Lab 06/02/25 23:05 Completed Comprehensive Metabolic Panel Stat Lab 06/02/25 23:05 Completed HCG Qualitative, Serum Stat Lab 06/02/25 23:05 Completed Lactic Acid Stat Lab 06/02/25 23:05 Completed Lipase Stat Lab 06/02/25 23:05 Completed Prothrombin Time INR Stat Lab 06/02/25 23:05 Completed UA [Urinalysis and Microscopic] Stat Lab 06/02/25 22:57 Completed Medical Decision Narrative: In summary, this 19-year-old female with history of cyclic vomiting syndrome, complex regional pain syndrome, anxiety and depression presents to the emergency department today with concerns of right lower quadrant abdominal pain radiating to the back. On initial evaluation patient is hemodynamically stable, afebrile, cardiopulmonary exam benign, abdominal exam with mild right lower quadrant tenderness but no rebound or guarding, no peritonitic findings, no CVA tenderness, remainder of exam reassuring. Differential diagnosis includes but is not limited to appendicitis, ovarian cyst, patient's symptoms are not consistent with ovarian torsion though this was also considered, I considered urinary tract infection, pyelonephritis, ureterolithiasis, hydronephrosis, kidney dysfunction, mesenteric adenitis, viral syndrome, constipation, among others. Based on these concerns, I ordered hematologic and serum labs, CT imaging, urinalysis. Patient received Toradol and Zofran for treatment. Labs personally reviewed demonstrate no leukocytosis or anemia, CMP with slight elevation in anion gap consistent with emesis earlier tonight, lipase normal reassuring against pancreatitis, lactate normal at 0.8, UA contaminated with squamous cells but negative for findings of infection. CT imaging personally interpreted demonstrate stool burden in the right colon but no evidence of obstruction, no obvious appendicitis, I do not appreciate ovarian cyst or other acute intra-abdominal abnormality. See radiology read for final interpretation. On reassessment patient is resting more comfortably, tolerating oral intake. She states she feels improved from prior. I believe she is appropriate for discharge at this time and patient and mom at bedside are comfortable with this plan. Zofran prescribed for outpatient management of symptoms. Patient was given instructions on symptomatic management, follow up instructions, and return precautions for the emergency department. Patient indicated understanding and was discharged in stable condition. Critical Care Critical Care Time Critical Care Time: No
[2025-06-02] MEDS: LACTATED RINGERS 1000ML 1,000 ML 999 ML IV (23:34)
[2025-06-02] MEDS: KETOROLAC 30MG/ML VIAL 30 MG IV (23:34)
[2025-06-02] MEDS: ONDANSETRON 4MG/2ML VIAL 4 MG IV (23:34)
[2025-06-02 23:35] LABS: Bacteria,Urine 1+ /lpf; Squamous Epithelial Cell,Urine 20-50 #/hpf (0-5)
[2025-06-02 23:57] VITALS: BP 115/69; PULSE 80; O2SAT 98
[2025-06-03] VITALS: BP 110/58; PULSE 78; O2SAT 97
[2025-06-03 00:15] LABS: HCG Qualitative, Serum Negative (Negative)
[2025-06-03] MEDS: IOPAMIDOL-370 (76%);100ML BOTTLE 75 ML IV (00:28)
[2025-06-03] MEDS: SODIUM CHLORIDE 0.9% 10ML SYR (RAD ONLY) 10 ML IV (00:28)
[2025-06-03 00:30] VITALS: BP 115/70; PULSE 72; O2SAT 98
[2025-06-03 01:01] VITALS: BP 112/59; PULSE 64; O2SAT 99
[2025-06-03 01:31] VITALS: BP 108/65; PULSE 82; O2SAT 100
[2025-06-03 01:51] VITALS: BP 108/74; PULSE 70; RESP 16; TEMP 36.6; O2SAT 99
== END 2025-06-03 01:52 | disposition home or self-care (01) ==
PROVIDERS: Emergency Provider Emergency Medicine; PCP Nurse Practitioner Family
DX: R10.31 Right lower quadrant pain (principal)
CPT/HCPCS: 74177; 80053; 81001; 83605; 83690; 84703; 85025; 85610; 96365; 96375; 99285; J1885; J2405; J7120; Q9967

== ENCOUNTER 2025-06-14 07:00 | Day surgery (SDC) | payer BC, SELFPAY ==
[2025-06-12 13:42] VITALS: BMI 22.1
--- NOTE | 2025-06-13 15:14 | P.HP_ITS ---
History of Present Illness *Admission Date: 06/14/25 *History of present illness: Ms. Calderon is a 19-year-old female who is here for diagnostic colonoscopy. The patient does have iron deficiency anemia. The patient has had some chronic constipation and bright red rectal bleeding. She does have alternating di arrhea. The patient reports no weight loss or family history of colitis, Crohn's disease or colon cancer. Her IBD serologies were normal. The examination is deemed medically necessary for diagnostic colonoscopy. The patient has been seen, interviewed and examined prior to the procedure by both myself and the anesthesia provider. [facility] Disclaimer: The information contained in this section may have been updated after the patient was seen, as this information can be updated by other users. Medical History Encounter to establish care Hematochezia Bright red blood per rectum Contact dermatitis and eczema due to plant Unspecified lump in axillary tail of the right breast Cyclic vomiting syndrome Sinusitis UTI (urinary tract infection) Pharyngitis Pharyngitis due to Streptococcus species Sore throat Post-tonsillectomy hemorrhage Post-tonsillectomy hemorrhage Myofascial pain Neck pain Dysmenorrhea Enlarged tonsils Laceration Left ankle injury Left ankle instability Leg pain Difficulty walking Complex regional pain syndrome i of left lower limb CRPS (complex regional pain syndrome) type I of lower limb Tear of peroneal tendon of left foot Edema of left ankle High ankle sprain of left lower extremity Strain of left peroneal muscle or tendon Left ankle pain Need for rabies vaccination Acne Depression Major depressive disorder Generalized anxiety disorder Insomnia Anxiety and depression Surgical History Status post tonsillectomy Family History Other No significant family history Social History Smoking Status: Never smoker second hand exposure: No alcohol intake: never substance use type: denies use counseling given: No current occupational status: unemployed and student Travel in the last 8 weeks?: Inside the [facility] household members: family housing: house pets and animals: Yes pets and animals: cat(s) and dog(s) caffeine: Yes physical activity: other details: 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; 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 frequency: 3-4 times per week duration: 60-90 minutes/day working smoke detector in home: Yes fire extinguisher in home: No carbon monox detector in home: No firearms in home: No Have you lived/traveled outside US in past 30 days?: No Contact w/someone who lives/traveled outside US past 30 days?: No Exposure to someone with infectious disease in past 14 days?: No Do you have a fever (greater than 100.4 F or 38 C)?: No Have you tested positive for COVID-19?: No Exposed to someone with COVID-19 in past 14 days?: No Do you have a sore throat?: No Do you have a cough?: No Do you have any weakness?: No Do you have any diarrhea?: No Are you experiencing any unusual bleeding?: No Do you have any muscle aches/pain?: No Do you have any abdominal pain?: No Are you experiencing loss of taste or smell?: No Other Medical History Have you received the Flu Vaccine for this season: No Have you received the Pneumonia Vaccine: No Review of Systems Review of Systems Review of systems (narrative): Negative *Cardiovascular Comments: Negative *Gastrointestinal Comments: Negative *Genitourinary Comments: Negative *Musculoskeletal Comments: Negative *Neurologic Comments: Negative Meds Home Medications and Allergies Home Medications ?Medication ?Instructions ?Recorded ?Confirmed ?Type inulin 1.7 gram chewable tablet 1.7 g PO DAILY 5 06/14/25 History (Fiber Gummies) atogepant 60 mg tablet (Qulipta) 60 mg PO DAILY #90 ta bs 05/14/25 06/14/25 Rx ondansetron 4 mg disintegrating 4 mg PO Q6H PRN nausea and 06/03/25 06/14/25 Rx tablet vomiting #10 tabs New Prescriptions to Start Prescriptions: Allergies Allergy/AdvReac Type Severity Reaction Status Date / Time No Known Allergies Allergy Verified 06/14/25 07:46 Exam Data for Last 24 hours I & O for Last 24 hours: Intake & Output 06/10/25 06/11/25 06/12/25 06/13/25 23:59 23:59 23:59 23:59 Weight 150 lb *Routine HEENT Exam Head: Present normocephalic Eye: Present EOMI and PERRL ENT: Present mucous membranes moist *Routine Neck Exam Neck: Present supple *Routine Respiratory Exam Respiratory: Present CTA bilaterally *Routine Cardiovascular Exam Cardiovascular: Present RRR *Routine Abdominal Exam Abdominal: Present soft and normoactive bowel sounds; Absent tenderness *Routine Rectal Exam Rectal:: deferred *Routine Genitalia Exam Genitalia:: deferred *Routine Extremities Exam Extremities: Absent cyanosis, clubbing or edema *Routine Skin Exam Skin: Present warm; Absent rash *Routine Neurological Exam Neurological: Present alert and oriented X3 Assessment and Plan *Assessment and plan (1) Iron deficiency: Status: Acute Category: Medical Code(s): E61.1 - Iron deficiency (2) Constipation: Status: Acute Category: Medical Code(s): K59.00 - Constipation, unspecified (3) Bright red rectal bleeding: Status: Acute Category: Medical Code(s): K62.5 - Hemorrhage of anus and rectum Plan A/P: 1. Iron deficiency anemia with some bright red rectal bleeding and constipation is the preprocedural diagnosis. The patient will be anesthetized/sedated using MAC sedation. The patient has been seen and examined. Cardiac and lung assessment prior to the examination is stable. Proceed with planned diagnostic colonoscopy.
--- NOTE | 2025-06-14 06:33 | HMH.PROCNOTE ---
[facility] Procedure Note Date: 06/14/25 Time: 08:53 Procedure Note:: Colonoscopy Procedure Report: Colonoscopy with cold snare polypectomy and monopolar ablation/coagulation of internal hemorrhoids Endoscopist: Erik La II, MD Referring physician: EDWIN Morales Date of Procedure: June 14, 2025 Equipment: Sobrr [id number] adult colonoscope Sedation: MAC sedation Indication: Ms. Calderon is a 19-year-old female who is here for diagnostic colonoscopy. The patient does have iron deficiency anemia. The patient has had some chronic constipation and bright red rectal bleeding. She does have some alternating diarrhea. She does get bloating and some lower abdominal discomfort. The patient reports no weight loss or family history of colitis, Crohn's disease or colon cancer. Her IBD serologies were normal. The patient does not have regular menstrual cycles because she is on oral contraceptives for the last 6 months. The examination is deemed medically necessary for diagnostic colonoscopy. Procedure: Prior to the procedure, a history and physical exam was performed, and patient's medications and allergies were reviewed. The risks, benefits and alternatives of the sedation and procedure were discussed with the patient. All questions were answered and informed consent was obtained. The patient was brought to the procedure room. Patient identification and proposed procedure were verified by the physician and the nurse. The patient was placed in a left lateral decubitus position and the scope was passed under direct vision. Throughout the procedure, the patient's blood pressure, pulse, and oxygen saturations were monitored continuously. The colonoscopy was accomplished without difficulty. The patient tolerated the procedure well. Findings: On digital rectal examination there was normal rectal tone. There was a healed posterior midline anal fissure. There were no external hemorrhoids. The colonoscope was introduced through the anal canal to the rectum and advanced to the cecum. The ileocecal valve and appendiceal orifice were identified. The scope was advanced a short distance into the ileum which appeared grossly normal. The scope was then withdrawn into the colon. There was an 8 to 9 mm ascending colon polyp removed via cold snare polypectomy. The remaining cecum, ascending, transverse, descending, sigmoid and rectum were grossly normal. There were no other mucosal abnormalities identified. Upon retroflexion within the rectum there were grade 1-2 internal hemorrhoids and a small anal papilla. 3 columns of hemorrhoids were ablated/coagulated using monopolar ablation/coagulation. The preparation was excellent throughout with [place] Preparation Score of 9. The cecal time was 14 minutes. Impression: 1. Ascending colon polyp (8 to 9 mm) 2. Grade 1-2 internal hemorrhoids status post monopolar ablation/coagulation Plan: I will follow-up the polyp histology and discussed the findings with the patient and family. We will discuss treatment options for her IBS.
[2025-06-14 07:47] VITALS: BP 125/76; PULSE 75; RESP 18; TEMP 36.1; O2SAT 100
[2025-06-14] MEDS: LACTATED RINGERS 1000ML 1,000 ML 50 ML IV (07:55)
[2025-06-14 07:59] LABS: Urine Pregnancy, HCG Qual. Negative (Negative)
--- NOTE | 2025-06-14 07:59 | P.PNANES_ITS ---
[facility] Disclaimer: The information contained in this section may have been updated after the patient was seen, as this information can be updated by other users. Medical History Encounter to establish care Hematochezia Bright red blood per rectum Contact dermatitis and eczema due to plant Unspecified lump in axillary tail of the right breast Cyclic vomiting syndrome Sinusitis UTI (urinary tract infection) Pharyngitis Pharyngitis due to Streptococcus species Sore throat Post-tonsillectomy hemorrhage Post-tonsillectomy hemorrhage Myofascial pain Neck pain Dysmenorrhea Enlarged tonsils Laceration Left ankle injury Left ankle instability Leg pain Difficulty walking Complex regional pain syndrome i of left lower limb CRPS (complex regional pain syndrome) type I of lower limb Tear of peroneal tendon of left foot Edema of left ankle High ankle sprain of left lower extremity Strain of left peroneal muscle or tendon Left ankle pain Need for rabies vaccination Acne Depression Major depressive disorder Generalized anxiety disorder Insomnia Anxiety and depression Surgical History Status post tonsillectomy Family History Other No significant family history Social History Smoking Status: Never smoker second hand exposure: No alcohol intake: never substance use type: denies use counseling given: No current occupational status: unemployed and student Travel in the last 8 weeks?: Inside the [place] household members: family housing: house pets and animals: Yes pets and animals: cat(s) and dog(s) caffeine: Yes physical activity: other details: 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; 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 frequency: 3-4 times per week duration: 60-90 minutes/day working smoke detector in home: Yes fire extinguisher in home: No carbon monox detector in home: No firearms in home: No Have you lived/traveled outside [place] in past 30 days?: No Contact w/someone who lives/traveled outside [place] past 30 days?: No Exposure to someone with infectious disease in past 14 days?: No Do you have a fever (greater than 100.4 F or 38 C)?: No Have you tested positive for COVID-19?: No Exposed to someone with COVID-19 in past 14 days?: No Do you have a sore throat?: No Do you have a cough?: No Do you have any weakness?: No Do you have any diarrhea?: No Are you experiencing any unusual bleeding?: No Do you have any muscle aches/pain?: No Do you have any abdominal pain?: No Are you experiencing loss of taste or smell?: No [facility] Anesthesia Checklist Patient Identification Patient Identification: Arm Band and Verbal (Name & ) Structural Data Admitted From: Home Planned Operative Procedure/s: colonscopy Consent for Planned Operative Procedure(s) Verified: Yes Verified Documents: Surgical Consent and History and Physical NPO Status Verified Time NPO: 00:00 Additional verifications Anesthesia Reactions: No Hx Blood Transfusions: No Blood Transfusion Reaction: No Airway Assessment Mallampati Score:: Class II Dentition: Good Dentition Neurological Assessment Level of Consciousness: Awake, Alert and Appropriate Anesthesia Plan Anesthesia Risk discussed: Yes Anesthesia Plan: Verified ASA Class: I Anesthesia Type: MAC
[2025-06-14 08:58] VITALS: BP 97/59; PULSE 70; RESP 18; TEMP 36.5; O2SAT 99
[2025-06-14 09:08] VITALS: BP 101/55; PULSE 74; RESP 18; O2SAT 99
[2025-06-14 09:18] VITALS: BP 105/68; PULSE 83; RESP 18; O2SAT 100
[2025-06-14 09:28] VITALS: BP 111/88; PULSE 89; RESP 18; O2SAT 100
[2025-06-14 10:00] VITALS: BP 118/77; PULSE 63; RESP 18; TEMP 36.5; O2SAT 99
== END 2025-06-14 10:00 | disposition home or self-care (01) ==
PROVIDERS: PCP Nurse Practitioner Family; Visit Provider Internal Medicine Gastroenterology
PROC: 0DJD8ZZ Inspection of Lower Intestinal Tract, Via Natural or Artificial Opening Endoscopic (ICD-10-PCS; CPT 45378; principal; 2025-06-14 08:30)
DX: D50.9 Iron deficiency anemia, unspecified (principal); D12.2 Benign neoplasm of ascending colon; K64.1 Second degree hemorrhoids; K62.89 Other specified diseases of anus and rectum; K58.9 Irritable bowel syndrome, unspecified; K62.5 Hemorrhage of anus and rectum; Z79.3 Long term (current) use of hormonal contraceptives; Z79.899 Other long term (current) drug therapy
CPT/HCPCS: 45385; 46930; 81025; J2003; J2704; J7120